=== PATIENT | female | born 1945 | race Caucasian/White ===

== ENCOUNTER 2021-04-26 20:02 | Emergency (ER) | payer MEDICARE ==
[~2021-04-26] VITALS: Ht 160 cm; Wt 72.6 kg
--- NOTE | 2021-04-26 20:05 | NUR ---
PT STATED GLF AROUND 190
--- NOTE | 2021-04-26 20:06 | NUR ---
[id number] FROM HOME C/O LEFT UPPER ARM PAIN SINCE TODAY S/P TRIP AND FALL. HIT LEFT HEAD, SWELLING EYEBROW SWELLING, DENIES KO. SLIGHT L HIP PAIN. PT A/OX4. TOLERATING ROOM AIR WELL.
[2021-04-26] MEDS ORDERED: MORPHINE SULFATE INJ 2 MG/ML DISP.SYRIN ONE ×2 (20:28→22:34)
[2021-04-26] MEDS ORDERED: MORPHINE SULFATE INJ 2 MG/ML DISP.SYRIN IM ONE ×2 (20:30→23:00)
--- NOTE | 2021-04-26 20:55 | NUR ---
BOND ANALYST AT BEDSIDE
--- NOTE | 2021-04-26 21:00 | NUR ---
PT TAKEN TO CT
--- NOTE | 2021-04-26 21:12 | NUR ---
PT RETURNED TO ER BED 1
[2021-04-26] MEDS ORDERED: TRAM50TA2 PO (21:54)
--- NOTE | 2021-04-26 23:08 | NUR ---
Patient discharged to home in stable condition VIA TAXI. RX Written and verbal after care instructions given. Patient verbalizes understanding of instruction. APPLIED SPLINT AND IMMOBILIZER TO LUE.
[2021-04-26 23:11] VITALS: BP 137/70
== END 2021-04-26 23:08 | disposition home or self-care (01) ==
LOC: ER 20:07
DX: S42.392A Other fracture of shaft of left humerus, initial encounter for closed fracture (principal); S00.12XA Contusion of left eyelid and periocular area, initial encounter; I48.91 Unspecified atrial fibrillation; Z98.890 Other specified postprocedural states; Z60.2 Problems related to living alone; W01.0XXA Fall on same level from slipping, tripping and stumbling without subsequent striking against object, initial encounter; Y93.01 Activity, walking, marching and hiking; Y92.89 Other specified places as the place of occurrence of the external cause; Y99.8 Other external cause status
CPT/HCPCS: 29105; 70450; 70486; 70490; 73030; 73060; 96372; 99285; J2270 ×2